=== PATIENT | male | born 1970 | race Caucasian/White ===

== ENCOUNTER 2018-06-03 12:02 | Emergency (ER) | payer BC ==
--- NOTE | 2018-06-04 09:17 | UC ---
Discharge - Sign-Out/Discharge Documenting (check all that apply): Post-Discharge Follow Up All imaging exams completed and their final reports reviewed: No Studies - Discharge Plan Disposition: LEFT WITHOUT BEING SEEN Referrals: Fazal Ewing MD [Primary Care Provider] - - Billing Disposition and Condition Disposition: Left Without Being Seen
== END 2018-06-03 12:25 | disposition left against medical advice (07) ==
LOC: UCCORT 12:02
DX: H93.91 Unspecified disorder of right ear (principal); Z53.21 Procedure and treatment not carried out due to patient leaving prior to being seen by health care provider